=== PATIENT | female | born 1995 | race Caucasian/White ===

== ENCOUNTER 2020-04-29 11:35 | Inpatient (IN) | payer OTHER ==
[~2020-04-29] VITALS: Ht 152.4 cm; Wt 54.9 kg
--- NOTE | 2020-04-29 11:45 | NUR ---
ER BED 2 PT BIB SELF C/O OF LOWER ABD PAIN 03/01. PT STATES PAIN STARTED LAST NIGHT. C/O OF PAIN UPON PALPATION. DENIES N/V. DENIES ANY DIARRHEA OR TROUBLES URINATING. VS CHECKED. AWAITING MD SERNA.
[2020-04-29 12:14] LABS: APPEARANCE,URINE Clear (CLEAR); BACTERIA,URINE Few /HPF (None Seen); BILIRUBIN,URINE Negative (NEGATIVE); BLOOD, URINE Trace-intact Ery/uL (NEGATIVE); COLOR,URINE Yellow (YELLOW); KETONES,URINE Negative (NEGATIVE); LEUKOCYTE ESTERASE ,URINE Negative (NEGATIVE); NITRITE, URINE Negative (NEGATIVE); PROTEIN,URINE Negative (NEGATIVE); SQUAMOUS EPITHELIAL CELL,UR Few /HPF (None Seen); UGLUCOSE Negative (NEGATIVE); UROBILINOGEN,URINE 0.2 EU/dL (0.2)
[2020-04-29 13:35] LABS: BASOPHILS % (AUTO) 0.1 % (0.0-2.0); EOSINOPHILS % (AUTO) 1.1 % (0.0-6.0); HEMATOCRIT 36 % (33-45); HEMOGLOBIN 12.5 g/dL (11.5-14.8); LYMPHOCYTES # (AUTO) 1.3 /CMM (0.8-4.8); LYMPHOCYTES % (AUTO) 13.6 % (20.0-44.0); MEAN CORPUSCULAR HGB CONC 35 g/dl (31.0-36.0); MEAN CORPUSCULAR VOLUME 97 fL (82-100); MONOCYTES # (AUTO) 0.5 /CMM (0.1-1.30); MONOCYTES % (AUTO) 4.8 % (2.0-12.0); NEUTROPHILS # (AUTO) 7.6 /CMM (1.8-8.9); NEUTROPHILS % (AUTO) 80.4 % (43.0-81.0); PLATELET COUNT (AUTO) 325 /CMM (150-450); RED BLOOD CELL COUNT(AUTO) 3.69 MIL/uL (4.0-5.2); WHITE BLOOD COUNT (AUTO) 9.5 K/uL (4.3-11.0)
[2020-04-29 13:43] LABS: CALCIUM, SERUM 9.2 mg/dL (8.5-10.1); CREATININE 0.7 mg/dL (0.6-1.3); POTASSIUM 3.7 mmol/L (3.5-5.1)
[2020-04-29 13:49] LABS: ALBUMIN 4.2 g/dL (3.4-5.0); BILIRUBIN,DIRECT 0.1 mg/dL (0.0-0.2); BILIRUBIN,TOTAL 0.7 mg/dL (0.2-1.0); TOTAL PROTEIN, SERUM 7.7 g/dL (6.4-8.2)
[2020-04-29] MEDS ORDERED: IV NS 0.9% 250 ML IV ONE (13:56)
[2020-04-29] MEDS ORDERED: IOHEXOL-300 100 ML VIAL IV ONE (13:56)
[2020-04-29] MEDS ORDERED: CT SWABBABLE VALVE TRANS SET 1 EA INFUS.SET MC ONE (13:56)
--- NOTE | 2020-04-29 14:34 | NUR ---
DR CHANEY PAGED FOR DR ADAMS
[2020-04-29] MEDS ORDERED: SPIR100T5 PO (14:55)
[2020-04-29] MEDS ORDERED: D AM PO (14:55)
[2020-04-29] MEDS ORDERED: TRAZ-252 PO (14:55)
[2020-04-29] MEDS ORDERED: BUPR100T13 PO (14:55)
--- NOTE | 2020-04-29 14:55 | NUR ---
PAGED DR CHANEY
--- NOTE | 2020-04-29 15:30 | NUR ---
COVID SWAB DONE
[2020-04-29] MEDS ORDERED: HYDROCODONE/APAP 5/325MG TABLET PO PRN (16:00)
[2020-04-29] MEDS ORDERED: Z GUARD REMEDY 2 OZ OINT TP PRN (16:00)
[2020-04-29] MEDS ORDERED: MORPHINE SULFATE INJ 2 MG/ML DISP.SYRIN IV PRN (16:00)
[2020-04-29] MEDS ORDERED: ONDANSETRON HCL/PF 4 MG/2 ML VIAL IVP PRN (16:00)
[2020-04-29] MEDS ORDERED: ACETAMINOPHEN 325 MG TABLET PO PRN (16:00)
[2020-04-29] MEDS ORDERED: MAG HYDROX/AL HYDROX/SIMETH 30 ML UDC PO PRN (16:00)
--- NOTE | 2020-04-29 16:56 | NUR ---
NURSING SUP GAVE 304-1.
--- NOTE | 2020-04-29 17:01 | NUR ---
REPORT GIVEN TO GARETH LAINEZ AT [facility]. PT WILL BE GOING TO 304-1.
--- NOTE | 2020-04-29 17:27 | NUR ---
RESAW FEEDER NOTE Patient arrived on unit at 1725, A/O x4, ambulatory, showing no signs of acute distress or SOB, saturating 99% on RA. BP 116/69, HR83 T 97.9F. 121 lbs. Patient c/o 6/10 pain in the RLQ. Moderate discomfort upon palpation. Patient is currently NPO at this time. Bed is in lowest position, side rails x2 in upright position, call light is within reach, fall safety precautions enforced. Will continue with admitting orders.
[2020-04-29] MEDS ORDERED: PIPERACILLIN /TAZOBACTAM 3.375 G in IV D5W 50 ML IV ONE (18:30)
--- NOTE | 2020-04-29 19:00 | NUR ---
RN CLOSING NOTE Patient is resting in bed, A/O x4, ambulatory showing no signs of acute distress or SOB, stable on RA. IV line is clean and intact s/l. Pain 6/10 in RLQ patient doesn't want pain meds at this time, warm heat pack given. Bed is in lowest position, side rails x3 in upright position, call light is within reach, fall safety and aspiration precautions enforced. Will endorse to overnight associate.
--- NOTE | 2020-04-29 19:15 | NUR ---
MS RN NOTES RECEIVED ON BED A/O X4,BREATHING REGULAR,AMBULATORY,NOT IN ANY FORM OF DISTRESS.CLAIMED MILD ABDOMINAL PAIN,HEATING PAD PROVIDED BY GARETH LAINEZ PER PATIENT REQUEST.REFUSED ANY PAIN MANAGEMENT AT THE MOMENT.SALINE LOCK LEFT AC INTACT AND PATENT.IV ZOSYN INFUSING.NPO STATUS FOR POSSIBLE PROCEDURE TOMORROW.CALL LIGHT IN REACH,NEEDS ANTICIPATED.
[2020-04-29 20:00] VITALS: BP 104/63
[2020-04-29] MEDS ORDERED: BUPR-96 PO (20:28)
[2020-04-29] MEDS ORDERED: ZOLPIDEM TARTRATE 5 MG TABLET PO PRN (22:00)
[2020-04-29] MEDS: TRAZODONE 50 MG TABLET PO SCH (22:05)
[2020-04-30] VITALS (13 sets, daily range): BP systolic 84–142; BP diastolic 45–78
[2020-04-30] MEDS: PIPERACILLIN /TAZOBACTAM 3.375 G in IV D5W 100 ML IV SCH ×4 (00:14→23:34)
--- NOTE | 2020-04-30 00:14 | NUR ---
MS RN NOTES DUE ZOSYN 3.375 GM IV HUNG,EXTENDED RELEASE INFUSION VIA IV PUMP.
--- NOTE | 2020-04-30 06:30 | NUR ---
MS RN NOTES FAIRLY RESTED AT NIGHT,ABDOMINAL PAIN IMPROVED.IVF ABX TOLERATED WELL.NO N/V/D NOTED.KEPT NPO FOR POSSIBLE PROCEDURE TODAY,AWAITING FOR ORDERS.WILL ENDORSE TO DAY NURSE FOR MARCI.
--- NOTE | 2020-04-30 07:15 | NUR ---
MS RN NOTES PATIENT IN BED ALERT ORIENTED X 4. NO ACUTE DISTRESS NOTED. BREATHING UNLABORED. NO SOB NOTED. IV ACCESS PATENT AND INTACT, NO REDNESS, NO SWELLING NOTED. SAFETY MEASURES IN PLACE. CALL LIGHT WITHIN REACH. WILL CONTINUE TO MONITOR ACCORDINGLY.
[2020-04-30 07:18] LABS: BASOPHILS % (AUTO) 0.5 % (0.0-2.0); EOSINOPHILS % (AUTO) 3.3 % (0.0-6.0); HEMATOCRIT 34 % (33-45); HEMOGLOBIN 11.9 g/dL (11.5-14.8); LYMPHOCYTES % (AUTO) 37.5 % (20.0-44.0); MEAN CORPUSCULAR HGB CONC 35 g/dl (31.0-36.0); MEAN CORPUSCULAR VOLUME 98 fL (82-100); MONOCYTES # (AUTO) 0.4 /CMM (0.1-1.30); MONOCYTES % (AUTO) 7.2 % (2.0-12.0); NEUTROPHILS # (AUTO) 2.7 /CMM (1.8-8.9); NEUTROPHILS % (AUTO) 51.5 % (43.0-81.0); PLATELET COUNT (AUTO) 299 /CMM (150-450); RED BLOOD CELL COUNT(AUTO) 3.52 MIL/uL (4.0-5.2); WHITE BLOOD COUNT (AUTO) 5.2 K/uL (4.3-11.0)
[2020-04-30 07:46] LABS: CREATININE 0.8 mg/dL (0.6-1.3); MAGNESIUM 2.3 mg/dL (1.8-2.4); PHOSPHORUS 4.8 mg/dL (2.5-4.9); POTASSIUM 3.9 mmol/L (3.5-5.1)
--- NOTE | 2020-04-30 08:26 | NUR ---
MS RN NOTES RECEIVED NEW ORDER FROM SONALI NAM CONSENT FOR LAPAROSCOPIC APPENDECTOMY POSSIBLY OPEN AND KEEP PATIENT NPO, ORDERS CLARIFIED AND READ BACK WITH SONALI FISHER, NOTED AND CARRIED OUT.
[2020-04-30] MEDS: SPIRONOLACTONE 25 MG TABLET PO SCH (09:00)
[2020-04-30] MEDS ORDERED: SPIRONOLACTONE 50 MG TABLET PO SCH (09:00)
[2020-04-30] MEDS ORDERED: DEXTROAMPHETAMINE SULFATE 15 MG PO SCH (09:00)
[2020-04-30] MEDS: buPROPion 100 MG TABLET PO SCH (09:00)
[2020-04-30] MEDS: buPROPion 75 MG TABLET PO SCH (13:00)
--- NOTE | 2020-04-30 14:00 | NUR ---
MS RN NOTES PATIENT WANTS THE FLU SHOT ADMINISTERED BEFORE DISCHARGE.
--- NOTE | 2020-04-30 15:45 | NUR ---
MS RN NOTES RECEIVED NEW ORDER FROM DR CHANEY TO DISCONTINUE PREVIOUS CONSENT FOR LAPAROSCOPIC APPENDECTOMY POSSIBLY OPEN CHANGE TO LAPAROSCOPIC APPENDECTOMY POSSIBLE EXPLORATORY LAPAROTOMY, ORDERS CLARIFIED AND READ BACK WITH DR CHANEY, NOTED AND CARRIED OUT.
[2020-04-30] MEDS ORDERED: ANESTHESIA TRAY IN PYXIS 1 EA TRAY MC ONE (16:17)
[2020-04-30] MEDS ORDERED: LIDOCAINE HCL/MPF 1% 30 ML VIAL IJ ONE (16:17)
[2020-04-30] MEDS ORDERED: BUPIVACAINE MPF 0.5% W/EPI INJ 30 ML VIAL ONE (16:18)
--- NOTE | 2020-04-30 16:40 | NUR ---
MS RN NOTES PATIENT TRANSPORTED TO OPERATING ROOM IN STABLE CONDITION.
[2020-04-30] MEDS ORDERED: ROCURONIUM BROMIDE 50 MG/5 ML ONE (16:53)
[2020-04-30] MEDS ORDERED: HYDROMORPHONE INJ 2 MG/ML DISP.SYRIN ONE (16:53)
[2020-04-30] MEDS ORDERED: MIDAZOLAM HCL 2 MG/2ML VIAL ONE (16:53)
[2020-04-30] MEDS ORDERED: BACITRACIN ZINC OINT PACKET 1 EA PACKET TP ONE (18:05)
--- NOTE | 2020-04-30 19:00 | NUR ---
MS RN NOTES PATIENT DID NOT RETURN FROM OPERATING ROOM AT THIS TIME. WILL ENDORSE TO NIGHT NURSE FOR CONTNUITY OF CARE.
[2020-04-30] MEDS: IV LR 1000 ML 1,000 ML IV PRN (20:08)
--- NOTE | 2020-04-30 20:16 | NUR ---
rn notes/arrival from RR: pt brought to the unit from Recovery room, arrived at 1910. report given by ela nurse. pt s/p lap appy with possible explore lap 04/[address] hart. pt abdomen soft to touch, denies any pain at this time, noted 3 surgical incision covered with c/d/i dressing, no active bleeding noted. pt a/o x3, on ra respirations even and unlabored. pt noted to have 10 jewelries, requested to be placed all in her personal bag. pt received ns bolus. all post op order faxed by recovery nurse, verified with pharmacist, luba stated she received it. all order placed in computer. pt started on clear liquids. connected to iv lr at 100ml/hr, also connected back to iv atb zosyn per day rn unable to infused as pt got picked up for surgery. discussed plan of care to pt, pt still tired from surgery. safety precautions for fall initiated, call light in reach, will continue monitoring vs [id number] per protocol.
[2020-04-30] MEDS: TRAZODONE 50 MG TABLET PO SCH ×2 (22:41→23:35)
[2020-04-30] MEDS: HYDROCODONE/APAP 10/325MG TABLET PO PRN (22:46)
--- NOTE | 2020-04-30 22:46 | NUR ---
prn norco: pt c/o 12/30 middle right abdominal pain, informed of available pain medication (norco 10/325 vs dilaudid iv), pt prefers norco tablet, prn norco 10/325 mg tab po administered to pt at this time. educate pt that trazodone will be administered 30mins to an hour apart since she will be taking the pain medication, for her safety wellbeing. pt agree and understand.
[2020-05-01 00:05] VITALS: BP 90/51
[2020-05-01] MEDS: HYDROMORPHONE 1 MG/1 ML DISP.SYRIN IV PRN ×2 (00:07→04:48)
--- NOTE | 2020-05-01 00:08 | NUR ---
prn dilaudid: pt c/o 03/01 abdl pain requesting for stronger pain medication, prn dilaudid 0.5 mg ivp administered to pt at this time. will continue to monitor and reassess pt.
[2020-05-01 01:36] VITALS: BP 94/53
[2020-05-01 03:00] VITALS: BP 100/60
[2020-05-01 04:00] VITALS: BP 93/60
[2020-05-01] MEDS: IV LR 1000 ML 1,000 ML IV PRN ×2 (04:19→15:32)
--- NOTE | 2020-05-01 04:49 | NUR ---
prn dilaudid: pt c/o 03/01 right middle abdl pain requesting for dilaudid , prn dilaudid 0.5 mg ivp administered to pt at this time.
--- NOTE | 2020-05-01 06:34 | NUR ---
BLOOD CULTURE RESULT: RECEIVED CALL FROM A RE BLOOD CULTURE RESULT: GRAM POSITIVE COCCI IN CLUSTER /BLOOD CULTURE ,REPORTED BY GIN BHARDWAJ. RESULT READ BACK AND VERIFIED. PLACED CALL TO [facility]. AWAITING CALL BACK.
--- NOTE | 2020-05-01 06:48 | NUR ---
End of shift report: Pt remains on ra, respirations even and unlabored, spo2 on ra 94-98%. Iv access remains patent and flushing well, infusing with LR at 100ml/hr, no s/s of iv infiltration noted. Prn dilaudid 0.5 mg ivp administered for c/o 8/10 pain, dressing on abdl incision site remains c/d/I, no active bleeding noted. Pt tolerated clear liquids diet well. No episode of n/v noted. Pt ate 3 jell o, 7 boxes (120ml each) of cranberry orange and apple juice, also able to drink 2 pitchers of ice water. Complete linen change provided. Pt ambulate to bathroom, voided freely, and claimed shes able to pass gas. Pt is vegan, has apple pie in pts refrigerator with account liaison it. Scd in use. Vs remains stable, needs attended. Remains afebrile. Plan of care: iv hydration, advance diet as tolerated, pain management, possible dc planning to home. Safety precautions for fall remains engaged, call light in reach, will endorse to day rn for continuity of care.
--- NOTE | 2020-05-01 07:15 | NUR ---
SMELLER NOTES BLOOD CULTURE RESULT GRAM POSITIVE COCCI IN CLUSTER /BLOOD CULTURE RELAYED TO DR VIKTORIA GUADARRAMA PRESENT ON THE FLOOR, NO NEW ORDER MADE AT THIS TIME.
[2020-05-01 08:00] VITALS: BP 88/52
[2020-05-01] MEDS: PIPERACILLIN /TAZOBACTAM 3.375 G in IV D5W 100 ML IV SCH ×2 (08:19→15:29)
[2020-05-01] MEDS: SPIRONOLACTONE 25 MG TABLET PO SCH (08:28)
[2020-05-01] MEDS: buPROPion 100 MG TABLET PO SCH (08:28)
[2020-05-01 08:36] LABS: BASOPHILS % (AUTO) 0.3 % (0.0-2.0); EOSINOPHILS % (AUTO) 0.4 % (0.0-6.0); HEMATOCRIT 29 % (33-45); HEMOGLOBIN 9.9 g/dL (11.5-14.8); LYMPHOCYTES # (AUTO) 1.4 /CMM (0.8-4.8); LYMPHOCYTES % (AUTO) 22.2 % (20.0-44.0); MEAN CORPUSCULAR HGB CONC 34 g/dl (31.0-36.0); MEAN CORPUSCULAR VOLUME 98 fL (82-100); MONOCYTES # (AUTO) 0.4 /CMM (0.1-1.30); MONOCYTES % (AUTO) 6.4 % (2.0-12.0); NEUTROPHILS # (AUTO) 4.6 /CMM (1.8-8.9); NEUTROPHILS % (AUTO) 70.7 % (43.0-81.0); PLATELET COUNT (AUTO) 255 /CMM (150-450); RED BLOOD CELL COUNT(AUTO) 2.98 MIL/uL (4.0-5.2); WHITE BLOOD COUNT (AUTO) 6.5 K/uL (4.3-11.0)
[2020-05-01 08:49] LABS: CALCIUM, SERUM 8.6 mg/dL (8.5-10.1); CREATININE 0.7 mg/dL (0.6-1.3)
[2020-05-01] MEDS: HYDROCODONE/APAP 10/325MG TABLET PO PRN ×3 (10:18→20:53)
[2020-05-01] MEDS: buPROPion 75 MG TABLET PO SCH (13:19)
[2020-05-01 16:00] VITALS: BP 104/67
--- NOTE | 2020-05-01 19:00 | NUR ---
MS RN NOTES PATIENT IN BED ALERT ORIENTED X 4. NO ACUTE DISTRESS NOTED. BREATHING UNLABORED. NO SOB NOTED. IV ACCESS PATENT AND INTACT, NO REDNESS, NO SWELLING NOTED. NEEDS ATTENDED AND ANTICIPATED. KEPT CLEAN DRY AND COMFORTABLE. CALL LIGHT WITHIN REACH. WILL ENDORSE TO NIGHT NURSE FOR CONTINUITY OF CARE.
--- NOTE | 2020-05-01 20:11 | NUR ---
MS/TELE/RN DURING INITIAL ASSESSMENT, PATIENT WAS ON BED AWAKE, ALERT, ORIENTED, COMFORTABLE WITH TOLERABLE PAIN LEVEL OF 4/10 AT THIS TIME, PATIENT WAS EATING DINNER, PATIENT STATES SHE IS NOT PASSING GAS YET, ENCOURAGED TO AMBULATE. WILL MONITOR.
[2020-05-01] MEDS: MAGNESIUM HYDROXIDE 30 ML UDC PO PRN (20:52)
[2020-05-01] MEDS: TRAZODONE 50 MG TABLET PO SCH (21:50)
[2020-05-02] MEDS: PIPERACILLIN /TAZOBACTAM 3.375 G in IV D5W 100 ML IV SCH ×2 (00:40→09:38)
[2020-05-02 06:43] LABS: CALCIUM, SERUM 8.4 mg/dL (8.5-10.1); CREATININE 0.8 mg/dL (0.6-1.3); POTASSIUM 4.4 mmol/L (3.5-5.1)
[2020-05-02 06:57] LABS: BASOPHILS % (AUTO) 0.5 % (0.0-2.0); EOSINOPHILS % (AUTO) 1.9 % (0.0-6.0); HEMATOCRIT 30 % (33-45); HEMOGLOBIN 10.3 g/dL (11.5-14.8); LYMPHOCYTES # (AUTO) 2.1 /CMM (0.8-4.8); LYMPHOCYTES % (AUTO) 49.8 % (20.0-44.0); MEAN CORPUSCULAR HGB CONC 34 g/dl (31.0-36.0); MEAN CORPUSCULAR VOLUME 98 fL (82-100); MONOCYTES # (AUTO) 0.3 /CMM (0.1-1.30); MONOCYTES % (AUTO) 7.1 % (2.0-12.0); NEUTROPHILS # (AUTO) 1.7 /CMM (1.8-8.9); NEUTROPHILS % (AUTO) 40.7 % (43.0-81.0); PLATELET COUNT (AUTO) 262 /CMM (150-450); RED BLOOD CELL COUNT(AUTO) 3.03 MIL/uL (4.0-5.2); WHITE BLOOD COUNT (AUTO) 4.1 K/uL (4.3-11.0)
--- NOTE | 2020-05-02 07:24 | NUR ---
MS/TELE/RN PATIENT IS AWAKE, COMFORTABLE, NO C/O PAIN, NO DISTRESS NOTED, CALL LIGHT IN REACH, ALL NEEDS ATTENDED AT THIS TIME. ENDORSED TO NEXT RN FOR MARCI.
[2020-05-02] MEDS ORDERED: HYDR-3972 PO (07:41)
[2020-05-02 08:00] VITALS: BP 113/70
[2020-05-02] MEDS: buPROPion 100 MG TABLET PO SCH (09:38)
[2020-05-02] MEDS: SPIRONOLACTONE 25 MG TABLET PO SCH (09:38)
[2020-05-02] MEDS ORDERED: INFLUENZA VACCINE 2020-21 0.5 ML DISP.SYRIN IM ONE (10:00)
[2020-05-02] MEDS: HYDROCODONE/APAP 10/325MG TABLET PO PRN (11:08)
[2020-05-02] MEDS: MAGNESIUM HYDROXIDE 30 ML UDC PO PRN (11:10)
[2020-05-02] MEDS: buPROPion 75 MG TABLET PO SCH (13:00)
[2020-05-02] MEDS ORDERED: SUCCINYLCHOLINE CHLORIDE 20 MG/ML VIAL IV ONE (14:34)
[2020-05-02] MEDS ORDERED: PROPOFOL 200 MG/20 ML VIAL IV ONE (14:34)
[2020-05-02] MEDS ORDERED: DEXAMETHASONE SOD PHOSPHATE 4 MG/ML VIAL IV ONE (14:34)
[2020-05-02] MEDS ORDERED: ONDANSETRON HCL/PF 4 MG/2 ML VIAL IVP ONE (14:34)
[2020-05-02] MEDS ORDERED: KETOROLAC TROMETHAMINE INJ 30 MG/ML VIAL IV ONE (14:34)
[2020-05-02] MEDS ORDERED: NEOSTIGMINE METHYLSULFATE INJ 1 MG/ML VIAL IV ONE (14:34)
[2020-05-02] MEDS ORDERED: GLYCOPYRROLATE 0.2 MG/ML VIAL IV ONE (14:34)
[2020-05-02] MEDS ORDERED: LIDOCAINE HCL/PF 2 % 5ML SDV 5 ML VIAL IV ONE (14:34)
--- NOTE | 2020-05-02 14:40 | NUR ---
Patient cleared for d/c to home by MD. Patient is awake, alert and oriented x 4. ambulatory. Breathing unlabored and even on room air , VS are stable and within baseline. Education regarding prescribed medication provided; Patient verbalized understanding of benefits and s/e. Prescriptions given to patient. Patient received d/c instructions ; pt verbalized understanding instructions given and will f/u with dr. Benavides in one will. Office telephone # for an appointment provided. Patient requested pain medication prior d/c and medication administrated. Surgical dressing clean intact. IV line removed , ID wrist band removed. All needs attended prior d/c. Patient sighed valuable form and all belongings with the patient including laptop, cell phone, double end tenon operator, jewelry, backpack and clothes.Patient safely transferred to [facility] via wheelchair where picked up by mother
== END 2020-05-02 14:35 | disposition home or self-care (01) | DRG 343 ==
LOC: ER 11:40 → MED 17:17
PROVIDERS: ADMIT Family Medicine; ATTEND Family Medicine
PROC: 0DTJ4ZZ Resection of Appendix, Percutaneous Endoscopic Approach (ICD-10-PCS; principal; 2020-04-30)
DX: K35.80 Unspecified acute appendicitis (principal); F32.9 Major depressive disorder, single episode, unspecified; G47.419 Narcolepsy without cataplexy; L70.9 Acne, unspecified; Z88.2 Allergy status to sulfonamides
CPT/HCPCS: 36415; 76856-TC; 80048-TC; 80061-TC; 80076-TC; 81000-TC; 83605-TC; 83690-TC; 83735-TC; 83880; 84100-TC; 84703-TC; 85025-TC; 85730-TC; 87040-TC; 87081-TC; 87086-TC; 87491; 87591; C9803-CS; G0378; J0330; J1100; J1170; J1885; J2250; J2405; J2543; J2704; J3490; J7050; J7060; J7120; Q9967